=== PATIENT | female | born 1995 | race Caucasian/White ===

== ENCOUNTER 2024-02-29 10:45 | Outpatient (RCR) | payer BC, SELFPAY ==
[2024-02-10 09:28] VITALS: BMI 40.9
[2024-02-29 11:09] VITALS: BMI 40.5
[2024-02-29 12:55] VITALS: BMI 40.5
== END 2024-05-01 11:07 | disposition home or self-care (01) ==
LOC: ANHDMC 10:45
DX: E78.5 Hyperlipidemia, unspecified (principal); E66.01 Morbid (severe) obesity due to excess calories; Z68.41 Body mass index [BMI] 40.0-44.9, adult; Z71.3 Dietary counseling and surveillance
CPT/HCPCS: 97802; 97803